=== PATIENT | female | born 1960 | race Caucasian/White ===

== ENCOUNTER → 2016-08-11 | Outpatient (CLI) | payer OTHER ==
--- NOTE | 2016-08-12 08:03 | XR ---
EXAMINATION TYPE: XR chest 2V, Left rib series DATE OF EXAM: 08/11/2016 1:08 PM COMPARISON: 08/25/2015 HISTORY: 56-year-old female with cough and left mid rib pain. TECHNOLOGIST NOTES: viviana ribs ordered but pt refused Rt ribs. She said she didn't have pain on the Rt and didn't want the extra radiation. FINDINGS: The cardiomediastinal silhouette, aorta, and pulmonary vasculature are within normal limits. Hyperinf lation with flattening of the hemidiaphragms. Otherwise, lungs and pleural spaces are clear. No displaced left rib fracture or other osseous abnormality seen. IMPRESSION: 1. Correlate for possible underlying COPD. No acute cardiopulmonary process. 2. No displaced left rib fracture.
== END | disposition home or self-care (01) ==
LOC: RADXRYALE 12:54
PROVIDERS: ATTEND Internal Medicine
DX: R05 Cough (principal); S23.41XA Sprain of ribs, initial encounter
CPT/HCPCS: 71020

== ENCOUNTER → 2016-09-08 | Outpatient (CLI) | payer OTHER ==
--- NOTE | 2016-09-08 09:37 | CT ---
EXAMINATION TYPE: CT chest w con DATE OF EXAM: 09/08/2016 9:15 AM COMPARISON: Correlation radiographs 08/11/2016 HISTORY: 56-year-old female COPD, shortness of breath TECHNIQUE: Contiguous axial scanning of the chest after the administration of 100 ml mL of Omnipaque 300. Coronal/sagittal reconstructions performed. CT DLP: 108.5mGycm. Automatic exposure control utilized for a dose reduction. FINDINGS: Heart is normal size without pericardial effusion. Aorta is normal caliber with conventional arch vessel branching anatomy. Precarinal lymph node measures 7 mm. No thoracic lymphadenopathy by CT size criteria. Suggestion of mild underlying centrilobular emphysema particularly in the upper lungs. Calcified granuloma along the minor fissure. 3 mm pulmonary nodule anterior right mid lung axial image 30. Some minimal patchy groundglass right middle lobe, axial image 40. 3 mm pulmonary nodule posteromedial right base axial image 48. No consolidation or pleural effusion. Small hiatal hernia. There is some hypodensity seen along the anterior falciform ligament typical of focal fat. However, there is a nonspecific rim-enhancing lesion measuring 8 mm in the peripheral infe rior right hepatic lobe axial image 71 that could represent an atypical hemangioma Bones: Mild endplate spondylosis mid thoracic spine. IMPRESSION: 1. Mild centrilobular emphysema in the upper lungs. 2. A couple 3 mm pulmonary nodules. In a patient at high risk for development of lung cancer, 1 year follow-up CT is recommended for nodules of this size. 3. Some minimal patchy groundglass in the right middle lobe could represent a small infectious/inflam matory focus. 4. Nonspecific 8 mm rim-enhancing lesion in the right hepatic lobe could represent an atypical suni ioma. Consider ultrasound to attempt visualization and further characterization. If this is unsuccess ful, a 3 - 6 month follow-up abdominal CT could be considered. 5. Small hiatal hernia.
== END | disposition home or self-care (01) ==
LOC: RADCTMAIN 08:37
PROVIDERS: ATTEND Internal Medicine
DX: J43.9 Emphysema, unspecified (principal); R91.8 Other nonspecific abnormal finding of lung field
CPT/HCPCS: 71260; Q9967

== ENCOUNTER → 2016-10-04 | Outpatient (CLI) | payer OTHER ==
--- NOTE | 2016-10-05 07:51 | MM ---
Reason for exam: screening (asymptomatic). Last mammogram was performed 8 years and 11 months ago. History: Family history of breast cancer in [place]. Took hormonal contraceptives for 10 years. Physical Findings: A clinical breast exam by your physician is recommended on an annual basis and results should be correlated with mammographic findings. MG Screening Mammo w CAD Bilateral CC and MLO view(s) were taken. Prior study comparison: November 15, 2007, bilateral digital screening mammogram. The breast tissue is heterogeneously dense. This may lower the sensitivity of mammography. There is no discrete abnormality. ASSESSMENT: Negative, BI-RAD 1 RECOMMENDATION: Routine screening mammogram of both breasts in 1 year.
== END | disposition home or self-care (01) ==
LOC: RADMAMWWP 09:48
PROVIDERS: ATTEND Internal Medicine
DX: Z12.31 Encounter for screening mammogram for malignant neoplasm of breast (principal)

== ENCOUNTER → 2016-12-27 | Outpatient (CLI) | payer OTHER ==
--- NOTE | 2016-12-27 09:39 | US ---
EXAMINATION TYPE: US liver DATE OF EXAM: 12/27/2016 COMPARISON: CT chest September 08, 2016 CLINICAL HISTORY: D1800 HEMANGIOMA UNSPECIFIED SITE. Abnormal recent CT EXAM MEASUREMENTS: Liver Length: 16.1 cm Gallbladder Wall: 0.1 cm CHD: 0.3 cm Right Kidney: 10.0 x 4.0 x 3.6 cm Pancreas: wnl Liver: Liver scanned. No prominent lesions identified. Gallbladder: wnl Evidence for sonographic Thomas's sign: neg CHD: wnl Right Kidney: wnl Scanning of liver shows no worrisome intrahepatic mass or ductal dilatation. IMPRESSION: 8 mm round hyperdense lesion on CT is not clearly identified on ultrasound, subcentimeter lesions are too small to further characterize but presumed benign. Consider surveillance imaging uti lizing dedicated multiphasic contrast-enhanced liver protocol CT or MRI.
== END | disposition home or self-care (01) ==
LOC: RADUSWWP 08:39
PROVIDERS: ATTEND Internal Medicine
DX: D18.00 Hemangioma unspecified site (principal)
CPT/HCPCS: 76705

== ENCOUNTER → 2018-07-19 | Outpatient (CLI) | payer OTHER ==
--- NOTE | 2018-07-20 10:11 | MM ---
Reason for exam: screening (asymptomatic). Last mammogram was performed 1 year and 9 months ago. History: Family history of breast cancer in [place]. Took hormonal contraceptives for 10 years. Physical Findings: A clinical breast exam by your physician is recommended on an annual basis and results should be correlated with mammographic findings. MG Screening Mammo w CAD Bilateral CC and MLO view(s) were taken. Prior study comparison: October 04, 2016, bilateral MG screening mammo w CAD. November 15, 2007, bilateral digital screening mammogram. The breast tissue is heterogeneously dense. This may lower the sensitivity of mammography. There is no discrete abnormality. No significant changes when compared with prior studies. ASSESSMENT: Negative, BI-RAD 1 RECOMMENDATION: Routine screening mammogram of both breasts in 1 year.
== END ==
LOC: RADMAMWWP 10:41
PROVIDERS: ATTEND Internal Medicine
DX: Z12.31 Encounter for screening mammogram for malignant neoplasm of breast (principal)
CPT/HCPCS: 77067

== ENCOUNTER → 2018-12-06 | Outpatient (CLI) | payer OTHER ==
--- NOTE | 2018-12-06 09:43 | CT ---
EXAMINATION TYPE: CT ChestAbdPelvis w con DATE OF EXAM: 12/06/2018 COMPARISON: 09/28/2017 HISTORY: Follow up scan per patient CT DLP: 428.3 mGycm Automated exposure control for dose reduction was used. CONTRAST: CT scan of the chest, abdomen and pelvis is performed without Oral Contrast and with IV Contrast, pat ient injected with 100 mL of Isovue 300. FINDINGS: LUNGS: Mild to moderate centrilobular emphysema upper and midlungs. Mild diffuse bronchial wall thick ening. No consolidation or pleural effusion. Stable 3 mm anterior right midlung pulmonary nodule. Sta ble 3 mm calcified granuloma along the minor fissure. 3 mm pulmonary nodule posteromedial right base is unchanged. A 2 mm nodule right lung apex retrospectively stable. Adjacent 3 mm lateral upper lobe nodule also respectively stable. MEDIASTINUM: Heart is normal size without pericardial effusion. Aorta normal caliber with conventiona l arch vessel branching anatomy. No thoracic lymphadenopathy by CT size criteria. ABDOMEN: There is an arterial phase enhancing lesion measuring 1 cm within segment 6 inferior right l iver lobe. This is estimated to measure 8 mm on prior exam. However, the current appearance is less w ell-defined. It appears to be a relatively hyperdense on the delayed kidney images as well otherwise, no focal liver lesion. Gallbladder, adrenal glands, kidneys, spleen, and pancreas appear within normal limits. Small hiatal hernia noted. No dilated small bowel, free fluid, or free air. Mild to moderate stool burden. No pericolonic inflam matory change. No mesenteric or retroperitoneal lymphadenopathy seen. Pelvis not imaged. Atherosclerotic change of the aorta. No aneurysm. Duodenal diverticulum suspected. BONES: Mild endplate spondylosis lower thoracic spine. No osseous destructive process. IMPRESSION: 1. COPD with stable multiple less than 5 mm pulmonary nodules. Given stability favor benign etiology. 2. Stable nonspecific 1 cm hypervascular lesion right lobe the liver. Flash hemangioma in the differe ntial diagnosis. Other etiologies not excluded. Findings stable from prior exam.
== END | disposition home or self-care (01) ==
LOC: RADCTMAIN 08:33
PROVIDERS: ATTEND Internal Medicine
DX: J44.9 Chronic obstructive pulmonary disease, unspecified (principal); R91.8 Other nonspecific abnormal finding of lung field; K76.9 Liver disease, unspecified
CPT/HCPCS: 71260; 74177; Q9967

== ENCOUNTER → 2022-01-25 | Outpatient (CLI) | payer OTHER ==
--- NOTE | 2022-01-25 12:22 | CT ---
EXAMINATION TYPE: CT chest wo con DATE OF EXAM: 01/25/2022 COMPARISON: 12/06/2018 HISTORY: Nodule CT DLP: 71.80 mGycm. Automated Exposure Control for Dose Reduction was Utilized. TECHNIQUE: CT scan of the thorax is performed without IV contrast. FINDINGS: LUNGS: Mild to moderate centrilobular emphysema upper and midlungs. Mild diffuse bronchial wall thickening. No consolidation or pleural effusion. Stable 3 mm anterior right midlung pulmonary nodule. Stable 3 mm calcified granuloma along the minor fissure. Stable 3 mm pulmonary nodule posteromedial right base is unchanged. A 2 mm nodule right lung apex stable. Adjacent 3 mm lateral upper lobe nodule also respectively stable. MEDIASTINUM: Lack of IV contrast is noted to limit evaluation for mediastinal and especially hilar ad enopathy. Heart is normal size without pericardial effusion. Aorta normal caliber with conventional a [facility] vessel branching anatomy. No thoracic lymphadenopathy by CT size criteria. OTHER: Hypertrophic and degenerative changes of the spine. Hypervascular lesion noted by prior CT sca n in the liver not included in the [id number] and not as well seen by noncontrast technique IMPRESSION: 1. COPD with stable multiple less than 5 mm pulmonary nodules. Given stability favor benign etiology.
== END | disposition home or self-care (01) ==
LOC: RADCTMAIN 10:54
PROVIDERS: ATTEND Internal Medicine
DX: R91.1 Solitary pulmonary nodule (principal)
CPT/HCPCS: 71250

== ENCOUNTER → 2023-06-29 | Outpatient (CLI) | payer OTHER ==
--- NOTE | 2023-07-03 11:47 | XR ---
EXAMINATION TYPE: XR lumbosacral spine min 4V DATE OF EXAM: 06/29/2023 1:25 PM CLINICAL INDICATION:Female, 63 years old with history of [id number] LBP; [facility] COMPARISON: None TECHNIQUE: XR lumbosacral spine min 4V - frontal lateral and bilateral obliques FINDINGS: 5 lumbar-type vertebral bodies. Osseous mineralization appears appropriate. No destructive osseous process. No compression fractures. Mild multilevel degenerative disc disease and mild facet a rthrosis in the mid to lower lumbar spine primarily. No significant malalignment. Pedicles are seen i n each level. No acute soft tissue finding. Moderate calcification of the abdominal aorta. IMPRESSION: 1. No acute fracture. 2. Mild multilevel disc degeneration.
== END | disposition home or self-care (01) ==
LOC: RADXRYALE 13:13
PROVIDERS: ATTEND Internal Medicine
DX: M51.36 Other intervertebral disc degeneration, lumbar region (principal)
CPT/HCPCS: 72110

== ENCOUNTER → 2023-10-03 | Outpatient (CLI) | payer OTHER ==
--- NOTE | 2023-10-03 09:24 | CT ---
EXAMINATION TYPE: CT chest w con CT DLP: 104.1 mGycm, Automated exposure control for dose reduction was used. DATE OF EXAM: 10/03/2023 7:18 AM COMPARISON: CT chest 01/25/2022. CLINICAL INDICATION:Female, 63 years old with history of R06.02 SOB; [facility], [facility] EPISODES TECHNIQUE: Multiple axial images were obtained through the chest. Sagittal and coronal reformats were created for review. Contrast used:89 mL of Isovue 300 with IV Contrast (None if empty) Oral contrast used: (None if empty) FINDINGS: LUNGS/ PLEURA: Mild to moderate centrilobular emphysema changes throughout the lungs. 2 mm right midd le lobe pulmonary nodule series 7 image 19 AIRWAY: Patent and unremarkable. HEART: Size within normal limits. MEDIASTINUM: No gross evidence of adenopathy. VASCULATURE: No aortic aneurysm. MUSCULOSKELETAL: No acute osseous abnormalities SOFT TISSUES/LYMPH NODES: Unremarkable. LOWER NECK: No significant findings. UPPER ABDOMEN: No significant findings. IMPRESSION: 1. Mild to moderate emphysema. 2. No focal airspace consolidation. 3. No clinically significant pulmonary nodules. Follow up recommendations for incidental pulmonary nodules, if there are any, are per [employer] or [employer]. https://radiopaedia.org/articles/[email or web address]-[email or web address]?lang=us
== END | disposition home or self-care (01) ==
LOC: RADCTMAIN 06:55
PROVIDERS: ATTEND Internal Medicine
DX: J44.9 Chronic obstructive pulmonary disease, unspecified (principal)
CPT/HCPCS: 71260; Q9967